=== PATIENT | male | born 2000 | race Caucasian/White ===

== ENCOUNTER 2022-12-06 18:02 | Emergency (ER) | payer OTHER ==
[~2022-12-06] VITALS: Ht 182.9 cm; Wt 68.0 kg
== END 2022-12-06 19:05 | disposition short-term general hospital (02) ==
LOC: ED 18:02
DX: S05.62XA Penetrating wound without foreign body of left eyeball, initial encounter (principal); S05.12XA Contusion of eyeball and orbital tissues, left eye, initial encounter; Z20.822 Contact with and (suspected) exposure to COVID-19; W22.8XXA Striking against or struck by other objects, initial encounter; Z91.048 Other nonmedicinal substance allergy status
CPT/HCPCS: 87502; 99284; A9270; U0003